=== PATIENT | female | born 1945 | race African-American/Black ===

== ENCOUNTER 2019-07-24 06:19 | Inpatient (IN) | payer MEDICARE, BC ==
[2019-07-24] VITALS (7 sets, daily range): BP systolic 68–147; BP diastolic 21–82
[~2019-07-24] VITALS: Ht 172.7 cm; Wt 87.5 kg
[2019-07-24] MEDS ORDERED: FENTANYL CITRATE/PF 50MCG/ML 2ML VIAL ONE (07:53)
[2019-07-24] MEDS ORDERED: LIDOCAINE HCL 1% 20ML VIAL (Pyxis) INJ ONE (07:53)
[2019-07-24] MEDS ORDERED: MIDAZOLAM HCL 2 MG/2 ML VIAL ONE ×2 (07:54→09:15)
[2019-07-24] MEDS ORDERED: PRED5TAB48 PO (08:02)
[2019-07-24] MEDS ORDERED: B50 GT (08:02)
[2019-07-24] MEDS ORDERED: HYDR-4009 PO (08:06)
[2019-07-24] MEDS ORDERED: PANT20TA3 MT (08:13)
[2019-07-24] MEDS ORDERED: AMLO10TA80 MT (08:13)
[2019-07-24] MEDS ORDERED: FAMO20TA8 MT (08:13)
[2019-07-24] MEDS ORDERED: LORA2TAB95 PO (08:13)
[2019-07-24] MEDS ORDERED: LUBI24CA5 MT (08:16)
[2019-07-24] MEDS ORDERED: PREG75CA MT (08:16)
[2019-07-24] MEDS ORDERED: ZOLP10TA6 MT (08:16)
[2019-07-24] MEDS ORDERED: IOHEXOL-300 100 ML BOTTLE ONE (08:39)
[2019-07-24] MEDS ORDERED: IODIXANOL 320MG/ML 100 ML BOTTLE IV ONE ×2 (08:39→09:42)
[2019-07-24] MEDS ORDERED: ATROPINE SULFATE 0.1MG/ML 10ML DISP.SYRIN ONE (09:15)
[2019-07-24] MEDS ORDERED: NITROGLYCERIN 0.4MG TABLET SL SL ONE (09:37)
[2019-07-24] MEDS ORDERED: TICAGRELOR 90 MG TABLET PO ONE (10:01)
[2019-07-24] MEDS ORDERED: ASPIRIN 325MG EC TABLET PO ONE (10:02)
[2019-07-24] MEDS ORDERED: ATROPINE SULFATE 1MG/10ML SYR IV PRN (10:30)
[2019-07-24] MEDS ORDERED: ACETAMINOPHEN 325MG TABLET PO PRN (10:30)
[2019-07-24] MEDS ORDERED: ONDANSETRON HCL 4MG/2ML INJ IV PRN (10:30)
[2019-07-24] MEDS ORDERED: NICARDIPINE 100MCG/ML 10ML VIAL (CATH LAB) IV ONE (12:00)
[2019-07-24] MEDS ORDERED: HEPARIN SODIUM 1,000 UNIT/1ML VIAL IV ONE (12:00)
[2019-07-24] MEDS ORDERED: PHENYLEPHRINE 100MCG/ML 10ML VIAL (CATH LAB) IV ONE (12:00)
[2019-07-24] MEDS ORDERED: NITROGLYCERIN 50MCG/ML 10ML VIAL (CATH LAB) IV ONE (12:00)
[2019-07-24] MEDS ORDERED: ZOLPIDEM TARTRATE 5MG TABLET PO PRN (14:00)
[2019-07-24] MEDS: TICAGRELOR 90 MG TABLET PO SCH (17:05)
[2019-07-25] VITALS (7 sets, daily range): BP systolic 109–153; BP diastolic 56–89
[2019-07-25 06:38] LABS: BASOPHILS % 0.5 % (0.0-2.0); EOSINOPHILS % 7.8 % (0.0-5.0); HEMATOCRIT. 39.5 % (36.0-48.0); HEMOGLOBIN. 13.4 g/dL (12.0-16.0); LYMPHOCYTES % 34.1 % (20.0-50.0); MEAN CORPUSCULAR HEMOGLOBIN 32.8 pg (28.0-32.0); MEAN CORPUSCULAR VOLUME 96.5 fL (81.0-99.0); MEAN PLATELET VOLUME 8.5 fl (7.4-10.4); MONOCYTES % 10.7 % (2.0-8.0); NEUTROPHILS % 46.9 % (40.0-76.0); PLATELET 221 x1000/uL (130-400); RED BLOOD CELL COUNT 4.09 mill/uL (4.2-5.4); RED CELL DISTRIBUTION WIDTH 13.8 % (11.6-14.6)
[2019-07-25 06:47] LABS: CHLORIDE 111 mEq/L (98-107)
[2019-07-25] MEDS ORDERED: POTASSIUM CHLORIDE 20MEQ TABLET SR PO NR (08:15)
[2019-07-25] MEDS: TICAGRELOR 90 MG TABLET PO SCH (08:45)
[2019-07-25] MEDS ORDERED: ASPIRIN 325MG TABLET PO SCH (09:00)
[2019-07-25] MEDS ORDERED: ASPIRIN 81MG TABLET PO SCH (09:00)
== END 2019-07-25 13:43 | disposition home health service (06) | DRG 247 ==
LOC: CCL 06:19 → 3WST 06:20
PROVIDERS: ADMIT Specialist; ATTEND Specialist
PROC: 027035Z Dilation of Coronary Artery, One Artery with Two Drug-eluting Intraluminal Devices, Percutaneous Approach (ICD-10-PCS; principal; 2019-07-24)
PROC: 4A023N7 Measurement of Cardiac Sampling and Pressure, Left Heart, Percutaneous Approach (ICD-10-PCS; 2019-07-24)
PROC: B2111ZZ Fluoroscopy of Multiple Coronary Arteries using Low Osmolar Contrast (ICD-10-PCS; 2019-07-24)
PROC: B2151ZZ Fluoroscopy of Left Heart using Low Osmolar Contrast (ICD-10-PCS; 2019-07-24)
DX: I25.119 Atherosclerotic heart disease of native coronary artery with unspecified angina pectoris (principal); I50.30 Unspecified diastolic (congestive) heart failure; G47.00 Insomnia, unspecified; I11.9 Hypertensive heart disease without heart failure; J44.9 Chronic obstructive pulmonary disease, unspecified; M06.9 Rheumatoid arthritis, unspecified; Z79.02 Long term (current) use of antithrombotics/antiplatelets; Z82.49 Family history of ischemic heart disease and other diseases of the circulatory system; Z79.82 Long term (current) use of aspirin
CPT/HCPCS: 36415; 80048; 85347; 92928; 93005; 93458; C1725; C1769; C1874; C1887; C1893; J0461; J1644; J2250; J2370; J3010; J3490; Q9967; J8499

== ENCOUNTER 2023-01-02 16:00 | Emergency (ER) | payer MEDICARE, BC ==
[~2023-01-02] VITALS: Ht 175.3 cm; Wt 89.0 kg
[~2023-01-02 16:00] MED LIST: AMLO10TA80 MT; B50 GT; FAMO20TA8 MT; HYDR-4009 PO; LORA2TAB95 PO; LUBI24CA5 MT; PANT20TA17 MT; PRED5TAB48 PO; PREG75CA MT; ZOLP10TA6 MT
[2023-01-02 16:14] VITALS: BP 137/76
[2023-01-02 16:40] LABS: BASOPHILS % 0.6 % (0.0-2.0); EOSINOPHILS % 7.9 % (0.0-5.0); HEMATOCRIT. 39.4 % (36.0-48.0); HEMOGLOBIN. 13.3 g/dL (12.0-16.0); LYMPHOCYTES % 22.2 % (20.0-50.0); MEAN CORPUSCULAR HEMOGLOBIN 31.6 pg (28.0-32.0); MEAN CORPUSCULAR VOLUME 93.8 fL (81.0-99.0); MEAN PLATELET VOLUME 7.9 fl (7.4-10.4); MONOCYTES % 9.8 % (2.0-8.0); NEUTROPHILS % 59.5 % (40.0-76.0); PLATELET 265 x1000/uL (130-400); RED CELL DISTRIBUTION WIDTH 13.9 % (11.6-14.6)
[2023-01-02 16:50] LABS: CHLORIDE 99 mEq/L (98-107)
[2023-01-02] MEDS ORDERED: PREDNISONE 20MG TABLET PO STA (20:30)
[2023-01-02] MEDS ORDERED: PREDNISONE 20MG TABLET PO NR (22:30)
[2023-01-02] MEDS ORDERED: ALBUTEROL (0.083%) 2.5MG/3ML NEB HHN SCH (22:30)
[2023-01-02] MEDS: ALBUTEROL (0.083%) 2.5MG/3ML NEB HHN SCH (23:36)
[2023-01-03] MEDS ORDERED: P50 MT (00:03)
[2023-01-03] MEDS ORDERED: DOXY-244 MT (00:03)
[2023-01-03] MEDS ORDERED: ALBU6.7H15 INH (00:03)
[2023-01-03] MEDS: ALBUTEROL (0.083%) 2.5MG/3ML NEB HHN SCH ×2 (00:12→00:48)
== END 2023-01-03 03:08 | disposition home or self-care (01) ==
LOC: ER 16:00
DX: R06.02 Shortness of breath (principal)
CPT/HCPCS: 36415; 71045; 80053; 83880; 84484; 85025; 93005; 94640; 99285; J7512